=== PATIENT | male | born 1985 | race African-American/Black ===

== ENCOUNTER 2018-06-07 23:38 | Emergency (ER) | payer OTHER ==
[2018-06-07 23:46] VITALS: BP 139/71; PULSE 83; TEMP 98.5; BMI 26.3
--- NOTE | 2018-06-08 01:53 | PDOC ---
*Physical Exam - Vital Signs Last Vital Signs Temp Pulse Resp BP Pulse Ox 98.5 F 83 18 139/71 100 06/07/18 23:43 06/07/18 23:43 06/07/18 23:43 06/07/18 23:43 06/07/18 23:43 Medical Decision Making - Medical Decision Making 06/08/18 01:53 Patient seen by the advanced practice provider under my direct supervision. Ancillary testing reviewed as necessary. I agree with plan as outlined by the advanced practice provider. *DC/Admit/Observation/Transfer Diagnosis at time of Disposition: Mallet finger of right hand - Discharge Dispostion Disposition: HOME Condition at time of disposition: Stable - Referrals Referrals: Isidoro Liu MD [Staff Physician] - Call tomorrow - Patient Instructions Printed Discharge Instructions: DI for Mallet Finger Additional Instructions: Thank you for choosing [facility]. It was a pleasure taking care of you. Please keep the splint on your finger Follow-up with hand doctor within 1 week. Return to the Emergency Department if your symptoms worsen or persist or other concerning symptoms. - Post Discharge Activity
--- NOTE | 2018-06-08 02:56 | PDOC ---
History of Present Illness - General Chief Complaint: Bone Injury Stated Complaint: RIGHT FORTH FINGER Time Seen by Provider: 06/08/18 01:47 History Source: Patient Exam Limitations: No Limitations Past History - Past Medical History Allergies/Adverse Reactions: Allergies Allergy/AdvReac Type Severity Reaction Status Date / Time No Known Allergies Allergy Verified 06/07/18 23:46 COPD: No - Suicide/Smoking/Psychosocial Hx Smoking History: Current every day smoker Have you smoked in the past 12 months: Yes Number of Cigarettes Smoked Daily: 15 Information on smoking cessation initiated: No Hx Alcohol Use: No Drug/Substance Use Hx: No *Physical Exam - Vital Signs Last Vital Signs Temp Pulse Resp BP Pulse Ox 98.5 F 83 18 139/71 100 06/07/18 23:43 06/07/18 23:43 06/07/18 23:43 06/07/18 23:43 06/07/18 23:43 - Physical Exam General Appearance: No: Apparent Distress Musculoskeletal: positive: Other (mallet finger of R ring finger; no erythema) Integumentary: positive: Normal Color Neurologic: positive: Alert, Normal Mood/Affect Moderate Sedation - Procedure Monitoring Vital Signs: Procedure Monitoring Vital Signs Temperature 98.5 F 06/07/18 23:43 Pulse Rate 83 06/07/18 23:43 Respiratory Rate 18 06/07/18 23:43 Blood Pressure 139/71 06/07/18 23:43 O2 Sat by Pulse Oximetry (%) 100 06/07/18 23:43 Medical Decision Making - Medical Decision Making 32 y/o M with no sig pmh presents due to prior injury to R ring finger (was seen here >1 month ago). Presents as states he lost his discharge paperwork and forgot the name of the hand doctor he was supposed to follow-up with. He also lost the splint he was given for his finger injury. Denies fever Patient with mallet finger - a finger splint was placed Will refer to hand for follow-up 06/08/18 02:40 *DC/Admit/Observation/Transfer Diagnosis at time of Disposition: Mallet finger of right hand - Discharge Dispostion Disposition: HOME Condition at time of disposition: Stable Decision to Admit order: No - Referrals Referrals: Isidoro Liu MD [Staff Physician] - Call tomorrow - Patient Instructions Printed Discharge Instructions: DI for Mallet Finger Additional Instructions: Thank you for choosing [facility]. It was a pleasure taking care of you. Please keep the splint on your finger Follow-up with hand doctor within 1 week. Return to the Emergency Department if your symptoms worsen or persist or other concerning symptoms. - Post Discharge Activity
== END 2018-06-08 03:03 | disposition home or self-care (01) ==
LOC: JER 23:38
PROC: 2W3JX1Z Immobilization of Right Finger using Splint (ICD-10-PCS; principal; 2018-06-07)
DX: M20.011 Mallet finger of right finger(s) (principal)
CPT/HCPCS: 99282-25